=== PATIENT | female | born 1980 | race Caucasian/White ===

== ENCOUNTER 2016-11-09 11:18 | Emergency (ER) | payer MEDICAID ==
[~2016-11-09] VITALS: Ht 167.6 cm; Wt 72.6 kg
[~2016-11-09 11:18] MED LIST: ACET-1757 PO; AMOX1TAB64 PO; CEPH-368; HYDR-3240; HYDR-3240 PO; METH500T97 PO; OSEL75CA PO; OXYC-302 PO; PRED5TAB PO; [UNRECOGNIZED DRUG - REMARK]
[2016-11-09 11:24] VITALS: BP 120/70
== END 2016-11-09 12:26 | disposition home or self-care (01) ==
LOC: ED 12:10
DX: S51.812D Laceration without foreign body of left forearm, subsequent encounter (principal); M54.9 Dorsalgia, unspecified; G89.29 Other chronic pain; M54.30 Sciatica, unspecified side; X58.XXXA Exposure to other specified factors, initial encounter; Y93.89 Activity, other specified; Y92.89 Other specified places as the place of occurrence of the external cause; Y99.8 Other external cause status
CPT/HCPCS: 99283

== ENCOUNTER 2017-03-13 07:09 | Emergency (ER) | payer MEDICAID ==
[~2017-03-13] VITALS: Ht 167.6 cm; Wt 64.1 kg
[2017-03-13 07:10] VITALS: BP 151/96
[2017-03-13] MEDS ORDERED: KETOROLAC 30 MG/1 ML ONE (07:23)
[2017-03-13] MEDS ORDERED: KETOROLAC 30 MG/1 ML IM ONE (07:30)
== END 2017-03-13 07:39 | disposition home or self-care (01) ==
LOC: ED 07:18
DX: K02.9 Dental caries, unspecified (principal); Z88.8 Allergy status to other drugs, medicaments and biological substances
CPT/HCPCS: 96372; 99283; J1885

== ENCOUNTER 2017-03-13 20:54 | Emergency (ER) | payer MEDICAID ==
[~2017-03-13] VITALS: Ht 167.6 cm; Wt 62.0 kg
[2017-03-13 21:04] VITALS: BP 150/94
[2017-03-13] MEDS ORDERED: OXYcodone/APAP 5/325MG TABLET ONE (21:27)
[2017-03-13] MEDS ORDERED: OXYcodone/APAP 5/325MG TABLET PO ONE (21:30)
[2017-03-13] MEDS ORDERED: BUPIVACAINE/PF 0.5% ONE (21:42)
== END 2017-03-13 23:18 | disposition home or self-care (01) ==
LOC: ED 23:00
DX: K02.9 Dental caries, unspecified (principal); F17.210 Nicotine dependence, cigarettes, uncomplicated; F15.10 Other stimulant abuse, uncomplicated; M54.9 Dorsalgia, unspecified; G89.29 Other chronic pain
CPT/HCPCS: 64400; 70100; 99284

== ENCOUNTER 2017-03-14 17:13 | Emergency (ER) | payer MEDICAID ==
[~2017-03-14] VITALS: Ht 167.6 cm; Wt 64.6 kg
[2017-03-14] MEDS ORDERED: HYDROmorphone 1 MG/ML, 1ML ONE (18:27)
[2017-03-14] MEDS ORDERED: KETOROLAC 30 MG/1 ML ONE (18:27)
[2017-03-14] MEDS ORDERED: ONDANSETRON 2MG/ML, 2ML ONE (18:27)
[2017-03-14] MEDS ORDERED: KETOROLAC 30 MG/1 ML IVPush ONE (18:30)
[2017-03-14] MEDS ORDERED: ONDANSETRON 2MG/ML, 2ML IVPush ONE (18:30)
[2017-03-14] MEDS ORDERED: HYDROmorphone 1 MG/ML, 1ML IV ONE (18:30)
[2017-03-14] MEDS ORDERED: AMPICILLIN/SULBACTAM 3 GM in SODIUM CHLORIDE 0.9% 100 ML IV ONE (18:30)
[2017-03-14] MEDS ORDERED: SODIUM CHLORIDE FLUSH 10ML SYR IVF ONE (18:30)
[2017-03-14] MEDS ORDERED: OMNIPAQUE 350 MG/ML, 100ML BOTTLE ONE (19:00)
[2017-03-14 19:05] LABS: HEMATOCRIT 43.1 % (34.6-47.8); HEMOGLOBIN 14.8 g/dL (11.7-16.4); WHITE BLOOD COUNT 11.7 x10^3/uL (3.4-10)
[2017-03-14 19:17] LABS: BLOOD UREA NITROGEN 10 mg/dL (7-18)
[2017-03-14 20:01] VITALS: BP 116/66
== END 2017-03-14 20:21 | disposition home or self-care (01) ==
LOC: ED 18:37
DX: K04.7 Periapical abscess without sinus (principal); M54.9 Dorsalgia, unspecified; G89.29 Other chronic pain
CPT/HCPCS: 36415; 70487; 80048; 82040; 85025; 96365; 96375; 99285; J0295; J1885; J2405; Q9967